=== PATIENT | female | born 1970 | race Two or more races ===

== ENCOUNTER 2017-03-25 13:07 | Emergency (ER) | payer MEDICAID ==
[~2017-03-25] VITALS: Ht 154.9 cm; Wt 61.2 kg
[2017-03-25] MEDS ORDERED: BENTYL10 MG ORAL (14:10)
[2017-03-25] MEDS ORDERED: RANITIDINE HCL150 MG ORAL (14:10)
[2017-03-25] MEDS ORDERED: ZOFRAN ODT4 MG ORAL (14:10)
[2017-03-25 14:48] VITALS: BP 126/83
--- NOTE | 2017-03-25 17:55 | Emergency Room Report ---
History of Present Illness General Chief Complaint: Abdominal Pain Source: Patient Present Illness HPI 46-year-old female presents ED complaining of abdominal pain with vomiting and diarrhea x3 days. Pain is epigastric, burning, 4/10, nonradiating. Denies chest pain or shortness of breath. Vomiting and diarrhea. Denies fevers or chills. Denies sick contacts or recent travel. Denies recent antibiotic use. No other aggravating or relieving factors. Denies any other associated symptom Allergies: Coded Allergies: No Known Allergies (Unverified , 03/25/17) Patient History Past Medical History: none Past Surgical History: none Pertinent Family History: none Social History: Denies: smoking, alcohol use, drug use Now: No Immunizations: UTD Reviewed Nursing Documentation: PMH: Agreed, PSxH: Agreed Nursing Documentation-PMH Past Medical History: No Stated History Review of Systems All Other Systems: negative except mentioned in HPI Physical Exam Vital Signs Date Time Temp Pulse Resp B/P (MAP) Pulse Ox O2 Delivery O2 Flow Rate FiO2 03/25/17 13:25 98.2 83 20 122/83 99 Room Air Sp02 EP Interpretation: reviewed, normal General Appearance: no apparent distress, alert, GCS 15, non-toxic Head: normocephalic, atraumatic Eyes: bilateral eye normal inspection, bilateral eye PERRL ENT: hearing grossly normal, normal pharynx, no angioedema, normal voice Neck: full range of motion, supple/symm/no masses Respiratory: chest non-tender, lungs clear, normal breath sounds, speaking full sentences Cardiovascular #1: regular rate, rhythm, no edema Cardiovascular #2: 2+ carotid (R), 2+ carotid (L), 2+ radial (R), 2+ radial (L) , 2+ dorsalis pedis (R), 2+ dorsalis pedis (L) Gastrointestinal: normal bowel sounds, non tender, soft, non-distended, no guarding, no rebound Rectal: deferred Genitourinary: normal inspection, no CVA tenderness Musculoskeletal: back normal, gait/station normal, normal range of motion, non- tender Neurologic: alert, oriented x3, responsive, motor strength/tone normal, sensory intact, speech normal Psychiatric: judgement/insight normal, memory normal, mood/affect normal, no suicidal/homicidal ideation Reflexes: 3+ bicep (R), 3+ bicep (L), 3+ tricep (R), 3+ tricep (L), 3+ knee (R) , 3+ knee (L) Skin: normal color, no rash, warm/dry, well hydrated Lymphatic: no adenopathy Medical Decision Making Diagnostic Impression: Primary Impression: Gastroenteritis ER Course Hospital Course 46-year-old F presents to ED with cramping abdominal pain with vomiting, diarrhea differential diagnosis: gastritis, SBO, cholecystits, gastroenteritis Clinical course Patient placed on stretcher. 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 After initial history, physical exam reveals a hematoma no acute distress. There is no abdominal guarding or tenderness. Mucous membranes moist. Good capillary refill. Stable vitals. Afebrile. consistent with gastroenteritis. I do not believe patient requires IV access or lab work or hydration. I feel this is a highly complex case requiring extensive working including EKG/ Rhythm strip, Xray/CT/US, Blood/urine lab work, repeat exams while in ED, and administration of strong opiates/narcotics for pain control, admission to hospital or close patient follow up. Diagnosis - gastroenteritis Stable and discharged to home with prescriptions for Zantac, zofran, bentyl. Followup with PMD. Return to ED if symptoms recur or worsen Last Vital Signs Date Time Temp Pulse Resp B/P (MAP) Pulse Ox O2 Delivery O2 Flow Rate FiO2 03/25/17 14:48 76 18 126/83 99 Room Air 03/25/17 13:25 98.2 Status: improved Disposition: HOME, SELF-CARE Condition: Stable Scripts Dicyclomine Hcl* (BENTYL*) 10 Mg Capsule 10 MG ORAL FOUR TIMES A DAY, #20 CAP Prov: NELLIE MISTRY M.D. 03/25/17 Ondansetron Odt* (ZOFRAN ODT*) 4 Mg Tab.rapdis 4 MG ORAL Q6H Y for Nausea & Vomiting, #30 TAB 0 Refills Prov: NELLIE MISTRY M.D. 03/25/17 Ranitidine Hcl* (ZANTAC*) 150 Mg Tablet 150 MG ORAL TWICE A DAY, #30 TAB Prov: NELLIE MISTRY M.D. 03/25/17 Referrals: NOT CHOSEN [facility]/,REFERRING (PCP) Patient Instructions: Viral Gastroenteritis, Adult, [id number] NELLIE MISTRY M.D. Mar 25, 2017 17:55
== END 2017-03-25 14:48 | disposition home or self-care (01) ==
LOC: EMR 14:03
DX: K52.9 Noninfective gastroenteritis and colitis, unspecified (principal)
CPT/HCPCS: 99283

== ENCOUNTER 2017-09-27 06:26 | Emergency (ER) | payer MEDICAID ==
[~2017-09-27] VITALS: Ht 152.4 cm; Wt 54.4 kg
[~2017-09-27 06:26] MED LIST: BENTYL10 MG ORAL; RANITIDINE HCL150 MG ORAL; ZOFRAN ODT4 MG ORAL
[2017-09-27 06:46] VITALS: BP 120/70
--- NOTE | 2017-09-27 06:48 | Emergency Room Report ---
History of Present Illness General Chief Complaint: General Complaint Source: Patient Present Illness HPI Patient is a 47-year-old female who presented after increased sore throat as well as the left leg pain. Patient reports having approximately 2 weeks of symptoms. She had been started on amoxicillin. She had noticed some increased ear drainage. She denies any fever. Patient reports having some pain to the left leg worse with ambulation. She denies taking oral contraceptives. Allergies: Coded Allergies: No Known Allergies (Unverified , 03/25/17) Patient History Past Medical History: see triage record Past Surgical History: unable to obtain Now: No Reviewed Nursing Documentation: PMH: Agreed; PSxH: Agreed Nursing Documentation-PMH Past Medical History: No Stated History Review of Systems All Other Systems: negative except mentioned in HPI Physical Exam Vital Signs Date Time Temp Pulse Resp B/P (MAP) Pulse Ox O2 Delivery O2 Flow Rate FiO2 09/27/17 06:39 97.8 80 18 120/70 99 Room Air 97.9 Sp02 EP Interpretation: reviewed, normal General Appearance: normal inspection, well appearing, no apparent distress, alert, GCS 15, non-toxic Head: atraumatic ENT: normal ENT inspection, hearing grossly normal, normal voice Neck: normal inspection, full range of motion, supple, no bony tend Respiratory: normal inspection, lungs clear, normal breath sounds, no respiratory distress, no retraction, no wheezing Cardiovascular #1: regular rate, rhythm, no edema Gastrointestinal: normal inspection, normal bowel sounds, non tender, soft, no guarding, no hernia Genitourinary: no CVA tenderness Musculoskeletal: normal inspection, back normal, normal range of motion Neurologic: normal inspection, alert, oriented x3, responsive, lab clerk III-XII nml as tested, motor strength/tone normal, speech normal Psychiatric: normal inspection, judgement/insight normal, mood/affect normal Skin: normal inspection, normal color, no rash Medical Decision Making Diagnostic Impression: Primary Impression: Viral pharyngitis ER Course Patient presented for sore throat. Differential diagnosis included but was not limited to meningitis, exudative tonsillitis, retropharyngeal abscess, epiglottitis, strep pharyngitis. Patient has a benign exam and does not appear to require any further imaging or laboratory testing at this time.The patient's has negative Homans sign and shows no evidence of DVT. The patient was given medications for symptomatic treatment.The patient is advised to follow up with primary care doctor in 1-2 days. Patient is advised to return if any worsening condition or if any changes in status that are concerning. This report is dictated with [employer] tanker service attendant software which may occasionally lead to discrepancies related to use of this software. Last Vital Signs Date Time Temp Pulse Resp B/P (MAP) Pulse Ox O2 Delivery O2 Flow Rate FiO2 09/27/17 06:39 97.8 80 18 120/70 99 Room Air 97.9 Status: improved Disposition: HOME, SELF-CARE Condition: Stable Scripts Loratadine/Pseudoephedrine (CLARITIN-D 12 HOUR TABLET) 1 Each Tab.er.12h 1 TAB ORAL EVERY 12 HOURS, #20 TAB Prov: Osmel Ovalle MD 09/27/17 Lidocaine HCl 2% Viscous (Lidocaine HCl 2% Viscous) 100 Ml Solution 15 ML ORAL QID for sore throat, #120 ML Prov: Osmel Ovalle MD 09/27/17 Osmel Ovalle MD Sep 27, 2017 06:48
[2017-09-27] MEDS ORDERED: LIDOCAINE VISC100 ML ORAL (06:50)
[2017-09-27] MEDS ORDERED: CLARITIN-D 121 EAC1 ORAL (06:50)
[2017-09-27] MEDS ORDERED: Lidocaine 2% Visc 15ml soln ORAL ONE (07:00)
[2017-09-27] MEDS ORDERED: Dexamethasone Elixir 0.25mg/2.5ml ORAL ONE (07:00)
[2017-09-27 07:30] VITALS: BP 120/70
== END 2017-09-27 07:30 | disposition home or self-care (01) ==
LOC: EMR 06:54
DX: J02.8 Acute pharyngitis due to other specified organisms (principal); B97.89 Other viral agents as the cause of diseases classified elsewhere
CPT/HCPCS: 81025; 99284

== ENCOUNTER 2018-11-08 22:13 | Emergency (ER) | payer MEDICAID ==
[~2018-11-08] VITALS: Ht 162.6 cm; Wt 63.5 kg
[~2018-11-08 22:13] MED LIST changes: +CLARITIN-D 121 EAC1 ORAL; +LIDOCAINE VISC100 ML ORAL
--- NOTE | 2018-11-08 22:44 | Emergency Room Report ---
History of Present Illness General Chief Complaint: Lower Extremity Injury Source: Patient Present Illness HPI Patient is a 48-year-old female with increased left lower extremity pain. Patient was referred from clinic for possible DVT. Patient denies any leg swelling. She had prior injury some many months ago at work. Patient had noticed increased cramping to her left lower extremity. She denies any numbness or weakness. She had been noted to be ambulatory.Patient had been taking ibuprofen and had been having improvement discomfort. Allergies: Coded Allergies: No Known Allergies (Unverified , 03/25/17) Patient History Past Medical History: see triage record Last Menstrual Period: now Now: No Reviewed Nursing Documentation: PMH: Agreed; PSxH: Agreed Nursing Documentation-PMH Past Medical History: No Stated History Review of Systems All Other Systems: negative except mentioned in HPI Physical Exam Vital Signs Date Time Temp Pulse Resp B/P (MAP) Pulse Ox O2 Delivery O2 Flow Rate FiO2 11/08/18 22:22 97.9 90 18 123/84 (97) 95 Room Air General Appearance: well appearing, no apparent distress, alert, GCS 15 Head: normocephalic, atraumatic ENT: hearing grossly normal, normal voice Neck: full range of motion, supple Respiratory: no respiratory distress, speaking full sentences Cardiovascular #1: normal inspection, regular rate, rhythm, no edema Gastrointestinal: normal inspection, non tender, soft Musculoskeletal: normal inspection, no calf tenderness Neurologic: normal inspection, alert, oriented x3, responsive, business objects consultant III-XII nml as tested, normal gait Psychiatric: mood/affect normal Skin: no rash Medical Decision Making Diagnostic Impression: Primary Impression: Muscle spasm of left lower extremity ER Course Presented for left lower extremity discomfort. Differential diagnosis include was not limited to DVT, muscle spasm, neuropathy among others. Duplex ultrasound of left lower extremity showed no evidence of deep venous thrombosis. patient to be hemodynamically stable. She did not appear to be in any distress. Patient appears to be stable for outpatient follow-up. She is advised to return if any worsening condition. She is given prescription for ibuprofen for pain. Last Vital Signs Date Time Temp Pulse Resp B/P (MAP) Pulse Ox O2 Delivery O2 Flow Rate FiO2 11/08/18 22:22 97.9 90 18 123/84 (97) 95 Room Air Status: improved Disposition: HOME, SELF-CARE Condition: Stable Scripts Ibuprofen* (MOTRIN*) 400 Mg Tablet 400 MG ORAL Q8H, #30 TAB 0 Refills Prov: Osmel Ovalle MD 11/09/18 Referrals: NOT CHOSEN [facility]/,REFERRING (PCP) Osmel Ovalle MD Nov 08, 2018 22:44
--- NOTE | 2018-11-08 22:45 | NUR ---
ED Nurse Note: Recieved pt from home, coming from clinic with c/o left leg and knee pain, note from clinic says to r/o DVT, pt denies injury, swelling or any other complaitns.
[2018-11-09 00:30] VITALS: BP 121/77
[2018-11-09] MEDS ORDERED: IBUPROFEN400 MG ORAL (00:32)
--- NOTE | 2018-11-09 00:39 | Diagnostic Imaging Report ---
Indication: Left lower extremity pain and swelling. Technique: Duplex Doppler imaging performed from the left common femoral vein to the popliteal vein. FINDINGS: Normal compressibility demonstrated from the common femoral vein to the popliteal vein. Respiratory phasicity and good augmentation demonstrated on waveform analysis. There is no evidence of thrombosis. IMPRESSION: No evidence of deep venous thrombosis within the left lower extremity.
[2018-11-09 00:40] VITALS: BP 121/77
--- NOTE | 2018-11-09 00:40 | NUR ---
ER DISCHARGE NOTE: Patient is cleared to be discharged per ERMD, pt is aox4, on room air, with stable vital signs. pt was given dc and prescription instructions, pt was able to verbalize understanding, pt id band removed without complications. pt is able to ambulate with steady gait. pt took all belongings.
== END 2018-11-09 00:40 | disposition home or self-care (01) ==
LOC: EMR 22:36
DX: M62.838 Other muscle spasm (principal)
CPT/HCPCS: 93971; 99283